=== PATIENT | female | born 2000 | race Two or more races ===

== ENCOUNTER 2023-06-11 23:51 | Emergency (ER) | payer SELFPAY ==
[~2023-06-11] VITALS: Ht 167.6 cm; Wt 88.5 kg
[2023-06-12] MEDS ORDERED: IBUPROFEN 400 MG TABLET PO ONE (00:30)
[2023-06-12] MEDS ORDERED: IBUPROFEN 400 MG TABLET ONE (00:31)
--- NOTE | 2023-06-12 03:12 | NUR ---
Patient discharged to home in stable condition. Written and verbal after care instructions given. Patient verbalizes understanding of instruction.
[2023-06-12 03:20] VITALS: BP 128/102; TEMP 98; O2SAT 100
== END 2023-06-12 03:22 | disposition home or self-care (01) ==
LOC: ER 23:54
DX: S70.02XA Contusion of left hip, initial encounter (principal); V89.2XXA Person injured in unspecified motor-vehicle accident, traffic, initial encounter; Y93.89 Activity, other specified; Y92.89 Other specified places as the place of occurrence of the external cause; Y99.8 Other external cause status
CPT/HCPCS: 73502